=== PATIENT | female | born 1945 | race Caucasian/White ===

== ENCOUNTER 2019-10-10 08:09 | Inpatient (IN) ==
--- NOTE | 2019-09-14 15:50 | PAT Medication Instructions ---
Medication Instructions Date of Service September 14, 2019 Home Medications Rejuvenator 2 tab PO BID 09/14/19 [History Confirmed 09/14/19] albuterol sulfate [Ventolin HFA] 2 puff INHALATION QID PRN 09/14/19 [History Confirmed 09/14/19] alprazolam [Xanax] 1 mg PO TID 09/14/19 [History Confirmed 09/14/19] amlodipine 2.5 mg PO QAM 09/14/19 [History Confirmed 09/14/19] amlodipine [Norvasc] 2.5 mg PO QAM 09/14/19 [History Confirmed 09/14/19] ascorbic acid (vitamin C) [Vitamin C] 500 mg PO DAILY 09/14/19 [History Confirmed 09/14/19] diclofenac sodium 2 g TOPICAL HS 09/14/19 [History Confirmed 09/14/19] diclofenac sodium 75 mg PO BID 09/14/19 [History Confirmed 09/14/19] dicyclomine 20 mg PO QID 09/14/19 [History Confirmed 09/14/19] diphenhydramine HCl [ZzzQuil] 25 mg PO HS PRN 09/14/19 [History Confirmed 09/14/19] esomeprazole magnesium [Nexium] 40 mg PO QAM 09/14/19 [History Confirmed 09/14/19] ezetimibe [Zetia] 10 mg PO QAM 09/14/19 [History Confirmed 09/14/19] furosemide [Lasix] 40 mg PO QAM 09/14/19 [History Confirmed 09/14/19] hydrocodone-homatropine 1 tab PO Q6H PRN 09/14/19 [History Confirmed 09/14/19] magnesium oxide 400 mg PO QPM 09/14/19 [History Confirmed 09/14/19] valsartan 160 mg PO QAM 09/14/19 [History Confirmed 09/14/19] ASK your surgeon for instructions diclofenac sodium 75 mg PO BID 09/14/19 [History Confirmed 09/14/19] STOP taking 2 weeks before surgery (or as soon as possible if surgery is within 2 weeks) Rejuvenator 2 tab PO BID 09/14/19 [History Confirmed 09/14/19] STOP taking 24 hours before surgery diclofenac sodium 2 g TOPICAL HS 09/14/19 [History Confirmed 09/14/19] DO NOT take the morning of surgery ascorbic acid (vitamin C) [Vitamin C] 500 mg PO DAILY 09/14/19 [History Confirmed 09/14/19] dicyclomine 20 mg PO QID 09/14/19 [History Confirmed 09/14/19] furosemide [Lasix] 40 mg PO QAM 09/14/19 [History Confirmed 09/14/19] valsartan 160 mg PO QAM 09/14/19 [History Confirmed 09/14/19] Take morning of surgery With a small sip of water, OTHERWISE NOTHING TO EAT OR DRINK AFTER MIDNIGHT: albuterol sulfate [Ventolin HFA] 2 puff INHALATION QID PRN (use if needed; please bring with you to hospital day of surgery if possible) alprazolam [Xanax] 1 mg PO TID 09/14/19 [History Confirmed 09/14/19] amlodipine 2.5 mg PO QAM 09/14/19 [History Confirmed 09/14/19] amlodipine [Norvasc] 2.5 mg PO QAM 09/14/19 [History Confirmed 09/14/19] esomeprazole magnesium [Nexium] 40 mg PO QAM 09/14/19 [History Confirmed 09/14/19] ezetimibe [Zetia] 10 mg PO QAM 09/14/19 [History Confirmed 09/14/19] hydrocodone-homatropine 1 tab PO Q6H PRN (okay to take up to 4 hours prior to surgery if needed) Take evening before surgery albuterol sulfate [Ventolin HFA] 2 puff INHALATION QID PRN (if needed) alprazolam [Xanax] 1 mg PO TID 09/14/19 [History Confirmed 09/14/19] dicyclomine 20 mg PO QID 09/14/19 [History Confirmed 09/14/19] diphenhydramine HCl [ZzzQuil] 25 mg PO HS PRN (if needed) hydrocodone-homatropine 1 tab PO Q6H PRN (if needed) magnesium oxide 400 mg PO QPM 09/14/19 [History Confirmed 09/14/19] Other Notes If you have any questions please call us at [phone] or [phone] or [phone] or [phone]
--- NOTE | 2019-09-17 11:08 | History & Physical Report ---
Date of Service September 17, 2019 date of surgery: 10-10-19 Assessment & Plan (1) Arthritis of knee, left: Risks and benefits of procedure discussed in detail today, patient would like to proceed with a Left total knee replacement at [facility] as scheduled. will obtain medical clearance from Dr Delgado as well as cardiac clearance from Dr Knox prior to surgery as well as obtain PATs at [facility]. Will place on ASA 81mg po bid x 1 month post op, f/u 2 weeks post op for routine post-operative care and x-ray, sooner if having any problems. will make arrangements for HHPT at the time of discharge. At this point in time, has failed conservative measures and would like to proceed with surgical intervention. History of Present Illness Chief Complaint: left knee pain Primary Care Provider: Graeme Delgado MD Zulema is a 74 year old female who complains of left knee pain, presents for pre-op evaluation prior to a left total knee replacement by dr Hernandez at [facility]. She complains of pain, crepitus, decreased range of motion, instability and stiffness in the left knee. She states that the symptoms have been chronic and non-traumatic and that the symptoms occur constantly with intermittent worsening. Currently the patient states that the symptoms are moderate-severe. The pain is described as aching, sharp and throbbing. The symptoms occur continuously. The symptoms are aggravated by ascending stairs, daily activities, first steps while awake walking. Prior NSAIDs include Aleve and Ibuprofen. she has been treated with previous cortisone and visco injections in the past without much relief. she is currently using a walker to assist with ambulation. Allergies Allergy/AdvReac Type Severity Reaction Status Date / Time amoxicillin [From Augmentin] Allergy Unknown DEWITT MOUTH Verified 09/14/19 11:40 clavulanic acid Allergy Unknown DEWITT MOUTH Verified 09/14/19 11:40 [From Augmentin] erythromycin base Allergy Unknown DEWITT MOUTH Verified 09/14/19 15:48 paroxetine [From Paxil] AdvReac Unknown DEWITT MOUTH Verified 09/14/19 15:48 Home Medications Home Medications Medication Instructions Recorded Confirmed Type Rejuvenator 2 tab PO BID 09/14/19 09/14/19 History albuterol sulfate [Ventolin HFA] 2 puff INHALATION QID PRN 09/14/19 09/14/19 History alprazolam [Xanax] 1 mg PO TID 09/14/19 09/14/19 History amlodipine 2.5 mg PO QAM 09/14/19 09/14/19 History amlodipine [Norvasc] 2.5 mg PO QAM 09/14/19 09/14/19 History ascorbic acid (vitamin C) [Vitamin 500 mg PO DAILY 09/14/19 09/14/19 History C] diclofenac sodium 2 g TOPICAL HS 09/14/19 09/14/19 History diclofenac sodium 75 mg PO BID 09/14/19 09/14/19 History dicyclomine 20 mg PO QID 09/14/19 09/14/19 History diphenhydramine HCl [ZzzQuil] 25 mg PO HS PRN 09/14/19 09/14/19 History esomeprazole magnesium [Nexium] 40 mg PO QAM 09/14/19 09/14/19 History ezetimibe [Zetia] 10 mg PO QAM 09/14/19 09/14/19 History furosemide [Lasix] 40 mg PO QAM 09/14/19 09/14/19 History hydrocodone-homatropine 1 tab PO Q6H PRN 09/14/19 09/14/19 History magnesium oxide 400 mg PO QPM 09/14/19 09/14/19 History valsartan 160 mg PO QAM 09/14/19 09/14/19 History Past Med/Surg History Medical History Anxiety Asthma Depression Diarrhea Hyperlipidemia Hypertension Needle phobia 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 Osteoarthritis Slow to wake up after anesthesia Urinary urgency Surgical History History of dental surgery Hx of bilateral cataract extraction Hx of cholecystectomy Hx of total hysterectomy Family History Aunt Family history of diabetes mellitus Mother Family history of diabetes mellitus Mother FHx: stroke Other FHx: heart disease Social History Preferred Language: Taiwanese Communication Ability: Effective Beliefs That Will Affect Care: None Current Living Situation: Alone Feels Safe at Home: Yes Safety Concerns: Feels Safe At This Time Smoking Status: Never smoker Do You Dip or Chew Tobacco: No ; Second Hand Exposure: Yes ( SMOKED) ; Hx Alcohol Use: No Hx Substance Use: No Review of Systems Review of Systems: All systems reviewed & are unremarkable except as noted in HPI & below Constitutional: no fever, no chills and no sweats Respiratory: no cough and no dyspnea Cardiovascular: no chest pain, no dyspnea and no orthopnea Gastrointestinal: no abdominal pain, no nausea and no vomiting Musculoskeletal: as per Subjective / HPI Physical Exam Physical Exam: Ht: 5ft 1in Wt: 104.8kg BP: 136/74 Pulse: 76 Constitutional: WD/WN, vitals as above no acute distress Respiratory: normal respiratory effort, lungs clear to auscultation no respiratory distress, no labored breathing and does not use accessory muscles Cardiovascular: RRR, no murmur, no edema Gastrointestinal (Abdomen): normal bowel sounds, soft, nontender, no hepatosplenomegaly Musculoskeletal: Knee: + knee abnormal to inspection (left knee), + effusion (+1 effusion), + limited ROM of knee (ROM 0/3/110), + knee ROM with crepitation, + joint line tenderness (medial joint line) and + Kathy's sign positive; no deformity, no skin erythema, no ecchymosis, no valgus laxity, no varus laxity, anterior drawer test negative, Rafa's sign negative and pivot shift test negative Results & Data Diagnostic Findings Left Knee X-ray dated 09/10/19 showing degenerative changes to the left knee, showing joint space narrowing of the medial compartment, no acute bony pathology noted.
--- NOTE | 2019-09-17 14:59 | Anesthesiology Consultation ---
Date of Service September 17, 2019 Assessment & Plan (1) Encounter for pre-operative examination: Chart Review Chart Review: Pending: Refer to Additional Notes / Consult section (awaiting PAT results) History Surgery Operation Date: 10/10/19 09:40 Proposed Procedures p Left Total Knee Arthroplasty - Rod Hernandez DO Height/Weight Height: 5 ft 1 in Weight: 104.78 kg Allergies Allergy/AdvReac Type Severity Reaction Status Date / Time amoxicillin [From Augmentin] Allergy Unknown DEWITT MOUTH Verified 09/14/19 11:40 clavulanic acid Allergy Unknown DEWITT MOUTH Verified 09/14/19 11:40 [From Augmentin] erythromycin base Allergy Unknown DEWITT MOUTH Verified 09/14/19 15:48 paroxetine [From Paxil] AdvReac Unknown DEWITT MOUTH Verified 09/14/19 15:48 Medications Home Medications Medication Instructions Recorded Confirmed Last Taken Rejuvenator 2 tab PO BID 09/14/19 09/14/19 Unknown albuterol sulfate [Ventolin HFA] 2 puff INHALATION QID PRN 09/14/19 09/14/19 Unknown alprazolam [Xanax] 1 mg PO TID 09/14/19 09/14/19 Unknown amlodipine 2.5 mg PO QAM 09/14/19 09/14/19 Unknown amlodipine [Norvasc] 2.5 mg PO QAM 09/14/19 09/14/19 Unknown ascorbic acid (vitamin C) [Vitamin 500 mg PO DAILY 09/14/19 09/14/19 Unknown C] diclofenac sodium 2 g TOPICAL HS 09/14/19 09/14/19 Unknown diclofenac sodium 75 mg PO BID 09/14/19 09/14/19 Unknown dicyclomine 20 mg PO QID 09/14/19 09/14/19 Unknown diphenhydramine HCl [ZzzQuil] 25 mg PO HS PRN 09/14/19 09/14/19 Unknown esomeprazole magnesium [Nexium] 40 mg PO QAM 09/14/19 09/14/19 Unknown ezetimibe [Zetia] 10 mg PO QAM 09/14/19 09/14/19 Unknown furosemide [Lasix] 40 mg PO QAM 09/14/19 09/14/19 Unknown hydrocodone-homatropine 1 tab PO Q6H PRN 09/14/19 09/14/19 Unknown magnesium oxide 400 mg PO QPM 09/14/19 09/14/19 Unknown valsartan 160 mg PO QAM 09/14/19 09/14/19 Unknown Past Medical History Medical History Anxiety Asthma Depression Diarrhea Hyperlipidemia Hypertension Needle phobia 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 Osteoarthritis Slow to wake up after anesthesia Urinary urgency Exercise / Class Metabolic Activity III < 4 Walking/Shop/Light housework Past Family History Family History Aunt Family history of diabetes mellitus Mother Family history of diabetes mellitus Mother FHx: stroke Other FHx: heart disease Past Surgical History Surgical History History of dental surgery Hx of bilateral cataract extraction Hx of cholecystectomy Hx of total hysterectomy Social History Smoking Status: Never smoker Do You Dip or Chew Tobacco: No Hx Alcohol Use: No Hx Substance Use: No Physical Exam ENMT Mouth: + dentures Thyromental Distance: > or= 3.5 Finger Breadths Mallampati Class: II Neck normal visual inspection Respiratory normal respiratory effort Auscultation: lungs clear to auscultation bilaterally Cardiovascular Rate/Rhythm: regular rate and regular rhythm Vessels: no carotid bruit
--- NOTE | 2019-09-17 15:52 | XRay Report ---
XR chest Pre-admission PA/Lat CLINICAL HISTORY: Preoperative chest COMPARISON STUDY: No previous studies for comparison. FINDINGS: The cardiac and mediastinal contours are normal. There is no evidence of focal pulmonary co nsolidation. There is no evidence of failure. No pleural effusions are visualized.[ IMPRESSION: No active disease in the chest. ACT 112: Negative or not required by law. Electronically signed by: Sukhwinder Villatoro M.D. 09/17/2019 3:51 PM
[2019-09-17 15:55] LABS: Basophils # (auto) 0.03 K/uL (0-0.2); Basophils % (auto) 0.4 %; Eosinophils # (auto) 0.14 K/uL (0-0.5); Eosinophils % (auto) 1.8 %; Hematocrit (blood only) 41.2 % (37-47); Hemoglobin 13.6 g/dL (12.0-16.0); Immature Granulocytes # (auto) 0.02 K/uL (0.00-0.02); Immature Granulocytes % (auto) 0.3 %; Lymphocytes # (auto) 2.24 K/uL (1.2-3.4); Lymphocytes % (auto) 29.2 %; Mean Corpuscular Hemoglobin 32.2 pg (25-34); Mean Corpuscular Volume 97.4 fL (80-100); Mean Platelet Volume 11.3 fL (7.4-10.4); Monocytes # (auto) 0.54 K/uL (0.11-0.59); Neutrophils # (auto) 4.69 K/uL (1.4-6.5); Neutrophils % (auto) 61.3 %; Platelet Count 173 K/uL (130-400); RDW Coefficient of Variation 13.7 % (11.5-14.5); RDW Standard Deviation 48.7 fL (36.4-46.3); Red Blood Count 4.23 M/uL (4.2-5.4); White Blood Count 7.66 K/uL (4.8-10.8)
[2019-09-17 16:02] LABS: BUN Creatinine Ratio 14.1 (10-20); Calcium 9.6 mg/dl (8.5-10.1); Creatinine Clr Calc Pharmacy 66.1 ml/min; Est GFR (African American) 81.8; Est GFR (Non-African American) 70.5; Potassium 4.4 mmol/L (3.5-5.1)
[2019-09-17 16:07] LABS: Appearance Urine Clear (Clear); Bacteria Urine Automated Negative (Negative); Bilirubin Urine Negative (Negative); Blood Urine Negative (Negative); Color Urine Dark Yellow; Epithelial Cell Urine Auto >30 /lpf (0-5); Glucose Urine UA Negative (Negative); Ketones Urine Negative (Negative); Leukocyte Esterase Urine 1+ (Negative); Nitrite Urine Negative (Negative); Protein Urine Negative (Negative); Specific Gravity Urine 1.021 (1.000-1.030); Urobilinogen Urine Negative (Negative); pH Urine 5.5 (4.5-7.5)
[2019-09-17 16:20] LABS: Partial Thromboplastin Ratio 0.9; Partial Thromboplastin Time 25.3 Seconds (21.0-31.0); Prothrombin Time 10.3 Seconds (9.0-12.0)
[2019-09-18 05:49] LABS: Estimated Average Glucose 103 mg/dl; Hemoglobin A1C 5.2 % (4.5-5.6)
[~2019-10-10 08:09] MED LIST: ACETAMINOPHEN 500 MG TAB PO SCH; BUPIVACAINE 0.5 % 5 MG/1 ML PF 10ML VIAL ONE; BUPIVACAINE/EPINEPHRINE 0.25% 1:200,000 30 ML VIAL ONE; CLINDAMYCIN 600 MG/54 ML BAG IV SCH; CeleBREX 200 MG CAP PO SCH; DEXAMETHASONE SOD INJ 4 MG/ML VIAL ONE; GABAPENTIN 300 MG CAP PO SCH; LR 500ML BOLUS, THEN 15ML/HR IV SCH; ROPIVACAINE 0.5% HCL/PF 150 MG, BUPIVACAINE 0.5% MPF 30 ML, EPINEPHrine 30MG/30ML (OR U... INSTIL SCH; TRANEXAMIC ACID 1,000 MG **IV Intra-op IV SCH; TRANEXAMIC ACID 1,000 MG **IV Pre-op IV SCH; dexAMETHasone 4 MG TAB PO SCH
--- NOTE | 2019-10-10 09:42 | History & Physical Bridge Note ---
Date of Service October 10, 2019 History & Physical Bridge Note I have examined the patient, reviewed the History & Physical and in the interval since the performance of the History & Physical I have noted the following changes of clinical significance: no changes noted
[2019-10-10] MEDS ORDERED: MIDAZOLAM HCL 1 MG/ML 2ML VIAL ONE ×2 (09:50→11:04)
[2019-10-10] MEDS ORDERED: fentaNYL citrate 100 MCG/2 ML VIAL ONE (09:50)
[2019-10-10] MEDS ORDERED: LIDOCAINE HCL 2% 2 ML VIAL/AMP(20MG/ML) INFIL ONE (10:17)
[2019-10-10] MEDS ORDERED: PROPOFOL IV EMULSION 10 MG/ML 20 ML VIAL IV ONE ×2 (10:17→12:25)
[2019-10-10] MEDS ORDERED: ONDANSETRON INJ 2 MG/ML 2 ML VIAL ONE (10:17)
[2019-10-10] MEDS ORDERED: BACITRACIN INJ 50,000 UNIT VIAL ONE (10:21)
[2019-10-10] MEDS ORDERED: ORTHO JOINT ANESTHETIC ONE (10:21)
[2019-10-10] MEDS ORDERED: KETAMINE HCL INJ 50 MG/ML 10 ML VIAL ONE (11:21)
[2019-10-10] MEDS ORDERED: ePHEDrine sulfate 50 MG/ML AMP IV PRN (11:23)
[2019-10-10] MEDS ORDERED: fentaNYL citrate 100 MCG/2 ML VIAL IV PRN (11:23)
[2019-10-10] MEDS ORDERED: ONDANSETRON INJ 2 MG/ML 2 ML VIAL IV PRN ×2 (11:23→14:02)
[2019-10-10] MEDS ORDERED: ATROPINE SULFATE 0.1 MG/ML 10ML SYR IV PRN (11:23)
--- NOTE | 2019-10-10 12:16 | Operative Report ---
Post Operative Report Pre & Post Diagnosis Operation Date: 10/10/19 11:10 Pre-Op Diagnosis: Unilateral Primary Osteoarthritis, Left Knee Post-Op Diagnosis: Unilateral Primary Osteoarthritis, Left Knee I identified the patient and participated in the time-out.: Yes Procedure Operation Date: 10/10/19 11:10 Actual Procedures p Left Total Knee Arthroplasty(Left utilizing Su & Nephew journey 2 patient matched total knee arthroplasty size 4 femur to tibia 11 polyethylene 32 oval patella) - Rod Hernandez DO Surgeon Rod Hernandez DO Hotel Housekeeper Arian BLACK Estimated Blood Loss 5 Findings Consistent with Post-Op Diagnosis Patient presents with severe end-stage tricompartmental degenerative joint disease varus alignment [id number] eburnated bone subchondral cystic changes marginal osteophytes moderate to large effusion left knee with end-stage DJD Specimens Bone and cartilage Anesthesia Type MAC Spinal Regional Complications none Disposition Accompanied Patient To Recovery: No Disposition: Recovery Room Indications Patient presents with severe end-stage tricompartmental degenerative joint disease no response to conservative management and physical therapy anti- inflammatories relative rest activity modification corticosteroid injections Visco supplementations the above intraoperative findings no time surgery. Description of Procedure After proper prepping and draping of the left lower extremity anterior midline incision was made over the region of the extensor extensor mechanism after meticulous hemostasis was obtained and maintained in subcutaneous tissues a medial parapatellar incision was made The patella was subluxed lateralward the medial lateral gutter were cleaned from any hypertrophic synovitis and scar tissue of the distal femoral block was placed and the distal femoral osteotomy cut was made subsequently the chamfers anterior and posterior osteotomy cuts were made utilizing the 4-in-1 block the tibia was subsequently subluxed anteriorward medial and ateral meniscal remnants were excised in their entirety remnants of the anterior and posterior cruciate ligaments were excised in their entirety excellent exposure of the proximal tibia was obtained the tibial osteotomy guide was placed on the proximal tibial osteotomy cut was made once again the knee was irrigated with copious amounts of sterile saline solution the patella was subsequently everted lateralward thickened scar tissue around the patella was removed the patella was subsequently cut utilizing a freehand technique and was drilled prepared for final preparation and placement of patella socially flexion-extension gaps were checked and the equal and symmetric trials were placed to the appropriate femoral and tibial trials with poly-spacer being placed for equal flexion and extension gaps and full range of motion including extension to 0 and flexion to 140 the trial components after having been taken to recovery range of motion was subsequently removed meticulous hemostasis was obtained and maintained subsequently a knee block injection of joint cocktail including ropivacaine 0.5% 150 mg. Bupivacaine 0.5% epinephrine 1-200,030 mL's toradol 30 mg dexamethasone 4 mg ketamine 10 mg clonidine 100 micrograms normal saline solution 30 mg was infiltrated into the soft tissues of the posterior knee medial lateral gutters and periosteal synovium special attention was paid to protect neurovascular structures at all times subsequently trial components having been removed the knee was irrigated with sterile saline solution. debris was removed the proximal tibia was subsequently prepared and was made ready for the placement of the tibial component tibial component was also cemented and tamped into position the femoral component was subsequently placed and cemented in the position the patellar component was subsequently cemented in position because hemostasis once again obtained and maintained wound having been thoroughly irrigated with debridement and debridement lavage was performed as well as a medial parapatellar incision closed with #1 Vicryl in interrupted fashion subcutaneous was closed with #2 Vicryl skin was closed with skin clips. PA-C was necessary for prepping and drapping as well as wound closure of deep fascia Sub cutaneous tissue and skin and was necessary for the case. A sterile compressive dressing was placed patient was taken to recovery in stable condition of report dictated by David I attest to the content of the Intraoperative Record and any orders documented therein. Any exceptions are noted below. I attest to the content of the Intraoperative Record and any orders documented therein. Any exceptions are noted below.
--- NOTE | 2019-10-10 13:24 | Anesthesiology Progress Note ---
Date of Service October 10, 2019 Anesthesia Post Procedure Vital Signs Vital Signs: Temp Pulse Pulse Resp BP Pulse Ox 10/10/19 13:15 37 C 81 15 161/69 H 92 10/10/19 13:05 82 20 149/67 H 94 10/10/19 12:58 36.8 C 92 H 16 161/71 H 95 10/10/19 09:08 36.9 C 71 24 151/85 H 95 Transfer of Care Handoff Completed per policy Notes Mental Status: alert / awake / arousable Patient Amnestic to Procedure: Yes Nausea / Vomiting: adequately controlled Pain: adequately controlled Airway Patency, RR, SpO2: stable & adequate BP & HR: stable & adequate Hydration State: stable & adequate Neuraxial Anesthesia: was administered and sensory block is resolving Anesthetic Complications: no major complications apparent and Pt Satisfied with anesthetic care
--- NOTE | 2019-10-10 13:51 | XRay Report ---
LEFT KNEE 2 VIEWS History: Left total knee arthroplasty. Degenerative arthritis. Postop. FINDINGS: The patient is status post a left total knee arthroplasty. The hardware is intact. No fract ure or dislocation. Skin shorty and surgical drains are in place. IMPRESSION: Left total knee arthroplasty. No evidence for hardware complication. ACT 112: Negative or not required by law. Electronically signed by: Ronny Tapia M.D. 10/10/2019 1:50 PM
[2019-10-10] MEDS ORDERED: bisacodyL 10 MG SUPP PR PRN (14:02)
[2019-10-10] MEDS ORDERED: NALOXONE HCL 0.4 MG/1 ML VIAL/CARP IV PRN (14:02)
[2019-10-10] MEDS ORDERED: HYDROmorphone INJ 0.5 MG/0.5 ML SYR IV PRN (14:02)
[2019-10-10] MEDS ORDERED: MAGNESIUM HYDROXIDE SUSP 30 ML UDC PO PRN (14:02)
[2019-10-10] MEDS ORDERED: METOCLOPRAMIDE HCL INJ 5 MG/ML 2 ML VIAL IV PRN (14:02)
[2019-10-10] MEDS ORDERED: ALBUTEROL HFA 8 GM INHALER INH PRN (14:02)
[2019-10-10] MEDS ORDERED: SODIUM CHLORIDE 0.9% 1000ML 1,000 ML IV SCH (14:02)
[2019-10-10] MEDS: ACETAMINOPHEN 500 MG TAB PO SCH ×2 (14:52→21:02)
[2019-10-10] MEDS: ALPRAZolam 0.5 MG TABLET PO SCH ×2 (14:53→21:02)
--- NOTE | 2019-10-10 15:35 | Hospitalist Consultation ---
Date of Consultation October 10, 2019 Assessment & Plan (1) Arthritis of knee, left: S/p left TKA with Dr. Hernandez on 10/10/2019. Estimated blood loss of 5 mL per operative note. - Post-operative follow up and pain managment per primary team - At risk for acute blood loss anemia - Follow hgbs - PT/OT & dispo per primary team - DVT ppx per primary team (2) (HFpEF) heart failure with preserved ejection fraction: Patient is on Lasix at home. Though it is listed as daily she tells me she takes it PRN when she feels chest tightness. - Will stop IV fluids at this time - Will hold Lasix for now, but low threshold to give her a dose (3) CAD (coronary artery disease): Cath in 2013 with non-obstructive CAD found. - Continue ezetimibe (4) Hypertension: BP is 135/75 after surgery. - Continue amlodipine, valsartan (5) Asthma: No present shortness of breath. Not on a maintenance inhaler. - Albuterol PRN (6) Anxiety: Uses her Xanax TID all the time. While not my preferred anti-anxiety regimen, I would not adjust this while inpatient. History of Present Illness Attending Physician: Rod Hernandez, DO History of Present Illness 74yo F w/ hx of CAD, HFpEF, asthma, and anxiety who presents as a medical consult after left TKA with Dr. Hernandez on 10/10/2019. Overall, she is doing very well. No major complaints at this time. Her left knee is feeling ok. She denies any shortness of breath. She reports she uses her lasix PRN when she feels a "tightness" in her chest. At present, she does not have this sensation and really wants to go home tomorrow. Allergies Allergy/AdvReac Type Severity Reaction Status Date / Time amoxicillin [From Augmentin] Allergy Unknown DEWITT MOUTH Verified 10/10/19 08:55 clavulanic acid Allergy Unknown DEWITT MOUTH Verified 10/10/19 08:55 [From Augmentin] erythromycin base Allergy Unknown DEWITT MOUTH Verified 10/10/19 08:55 paroxetine [From Paxil] AdvReac Unknown DEWITT MOUTH Verified 10/10/19 08:55 Home Medications Home Medications Medication Instructions Recorded Confirmed Type albuterol sulfate [Ventolin HFA] 2 puff INHALATION QID PRN 09/14/19 10/10/19 History alprazolam [Xanax] 1 mg PO TID 09/14/19 10/10/19 History amlodipine 2.5 mg PO QAM 09/14/19 10/10/19 History ascorbic acid (vitamin C) [Vitamin 500 mg PO DAILY 09/14/19 10/10/19 History C] diclofenac sodium 2 g TOPICAL HS 09/14/19 10/10/19 History diclofenac sodium 75 mg PO BID 09/14/19 10/10/19 History dicyclomine 20 mg PO QID 09/14/19 10/10/19 History diphenhydramine HCl [ZzzQuil] 25 mg PO HS PRN 09/14/19 10/10/19 History esomeprazole magnesium [Nexium] 40 mg PO QAM 09/14/19 10/10/19 History ezetimibe [Zetia] 10 mg PO QAM 09/14/19 10/10/19 History furosemide [Lasix] 40 mg PO QAM 09/14/19 10/10/19 History hydrocodone-homatropine 1 tab PO Q6H PRN 09/14/19 10/10/19 History magnesium oxide 400 mg PO QPM 09/14/19 10/10/19 History valsartan 160 mg PO QAM 09/14/19 10/10/19 History Patient History Medical History Anxiety Asthma Depression Diarrhea Hyperlipidemia Hypertension Needle phobia 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 Osteoarthritis Urinary urgency Surgical History History of dental surgery Hx of bilateral cataract extraction Hx of cholecystectomy Hx of total hysterectomy Slow to wake up after anesthesia Family History Aunt Family history of diabetes mellitus Mother Family history of diabetes mellitus Mother FHx: stroke Other FHx: heart disease Social History Preferred Language: Surinamese Communication Ability: Effective Beliefs That Will Affect Care: None Current Living Situation: Alone Feels Safe at Home: Yes Safety Concerns: Feels Safe At This Time Smoking Status: Never smoker Do You Dip or Chew Tobacco: No ; Second Hand Exposure: Yes ( SMOKED) ; Hx Alcohol Use: No Hx Substance Use: No Review of Systems Review of Systems: All systems reviewed & are unremarkable except as noted in HPI & below Physical Exam Constitutional: WD/WN, vitals as above Eyes: EOM intact bilaterally; no conjunctival abnormality ENMT: external ear and nose normal, oropharynx normal Neck: trachea midline, no thyromegaly normal visual inspection Respiratory: normal respiratory effort, lungs clear to auscultation no respiratory distress Cardiovascular: RRR, no murmur, no edema Gastrointestinal (Abdomen): Inspection/Auscultation: abdomen normal to inspection; abdomen not distended Musculoskeletal: Extremities: extremities normal to inspection (Left knee in bandage with drain present.) Skin: no rashes, warm and dry Neurologic: moves all extremities and awake Psychiatric: Orientation: alert, oriented to person and cooperative Results & Data ([facility]) Vital Signs (Past 12 Hours) Vital Signs Temp Pulse Pulse Resp BP Pulse Ox 10/10/19 15:03 36.7 C 73 17 146/78 H 96 10/10/19 14:42 66 18 132/67 96 10/10/19 14:06 37.2 C 77 16 151/75 H 94 10/10/19 13:40 81 20 139/73 93 10/10/19 13:25 78 19 153/74 H 93 10/10/19 13:15 37 C 81 15 161/69 H 92 10/10/19 13:05 82 20 149/67 H 94 10/10/19 12:58 36.8 C 92 H 16 161/71 H 95 10/10/19 09:08 36.9 C 71 24 151/85 H 95 PG Care Time/CCT Total # of Minutes Spent Total Time Spent with Patient: Total time spent is greater than 50% in coordination of care (as documented) at patient's floor/unit and/or counseling patient: Coding Level of Care Code 51632 Inpt Consult Level 3 Diagnoses Arthritis of knee, left M17.12 (HFpEF) heart failure with preserved ejection fraction I50.30 CAD (coronary artery disease) I25.10 Hypertension I10 Asthma J45.909 Anxiety F41.9
[2019-10-10] MEDS: FERROUS GLUCONATE 324 MG TAB PO SCH (16:43)
[2019-10-10] MEDS: DICYCLOMINE HCL 20 MG TAB PO SCH ×3 (16:43→21:01)
[2019-10-10] MEDS: CLINDAMYCIN 600 MG in DEXTROSE 5% 50 ML IV SCH (18:21)
[2019-10-10] MEDS: OXYCODONE HCL IR 5 MG TAB (IMMEDIATE RELEASE) PO PRN (19:35)
[2019-10-10] MEDS ORDERED: SENNA 8.6 MG TAB PO SCH (21:00)
[2019-10-10] MEDS ORDERED: MAGNESIUM OXIDE 400 MG TAB PO SCH (21:00)
[2019-10-10] MEDS: ASPIRIN 81 MG ECTAB PO SCH (21:01)
[2019-10-10] MEDS: DOCUSATE SODIUM 100 MG CAP PO SCH (21:01)
[2019-10-11] MEDS: CLINDAMYCIN 600 MG in DEXTROSE 5% 50 ML IV SCH (02:09)
[2019-10-11] MEDS: ACETAMINOPHEN 500 MG TAB PO SCH (05:58)
[2019-10-11 06:19] LABS: Hematocrit (blood only) 37.1 % (37-47); Hemoglobin 12.6 g/dL (12.0-16.0); Mean Corpuscular Hemoglobin 32.4 pg (25-34); Mean Corpuscular Volume 95.4 fL (80-100); Mean Platelet Volume 10.3 fL (7.4-10.4); Platelet Count 161 K/uL (130-400); RDW Coefficient of Variation 12.7 % (11.5-14.5); RDW Standard Deviation 44.3 fL (36.4-46.3); Red Blood Count 3.89 M/uL (4.2-5.4)
[2019-10-11 06:50] LABS: Calcium 9.1 mg/dl (8.5-10.1); Creatinine Clr Calc Pharmacy 55.9 ml/min; Est GFR (African American) 67.4; Est GFR (Non-African American) 58.2; Potassium 4.7 mmol/L (3.5-5.1)
--- NOTE | 2019-10-11 07:55 | Orthopedic Progress Note ---
Date of Service October 11, 2019 Assessment & Plan (1) History of total left knee replacement: POD #1 s/p Left TKA pt/ot dvt proph with [facility]/SCD/ASA plan for d/c home with HHPT, recheck after PT today. likely have home health d/c drain tomorrow. Subjective POD #1 s/p Left TKA Review of Systems Constitutional: no fever, no chills and no sweats Respiratory: no cough and no dyspnea Cardiovascular: no chest pain and no dyspnea Gastrointestinal: no abdominal pain, no nausea and no vomiting Physical Exam Physical Exam: Vital Signs Temp 36.7 C 10/11/19 03:00 Pulse 55 L 10/11/19 03:00 Resp 18 10/11/19 03:00 BP 152/67 H 10/11/19 03:00 Pulse Ox 91 10/11/19 03:00 Intake & Output 10/10/19 10/11/19 10/11/19 18:59 06:59 18:59 Intake Total 1464.000 / 2312.00 0 848 / 2312.000 Output Total 205 / 1305 1100 / 1305 Balance 1259.000 / 1007.00 0 -252 / 1007.000 Weight 103.918 kg Intake: IV 964.000 / 1072.000 108 / 1072.000 Cleocin 600 mg In D5w 50 ml @ 108 / 108 100 mls/hr IV Q8H [facility] Rx#: [id number] CLEOCIN 600 mg In 54 ml @ 100 54 / 54 mls/hr IV PREO P [facility] Rx#: [id number] Lr 1,000 ml @ 15 mls/hr IV . 700.000 / 700.000 Q24H [facility] Rx#:[id number] TRANEXAMIC ACI D / 0.7% NACL 1, 210 / 210 000 mg In 100 ml @ 600 mls/hr IV TODAY@0600 [facility] Rx#:[id number] IV Perioperative 500 / 500 Oral 740 / 740 Output: Urine 200 / 975 775 / 975 Estimated Blood Loss 5 / 5 Drain Output 325 / 325 Left Knee 325 / 325 Constitutional: WD/WN, vitals as above no acute distress Musculoskeletal: Left Leg: NVDI, calf SNT, negative laureen sign. DP palpable, able to wiggle toes/ankle movement without difficulty. dressing clean dry and intact. Results & Data ([facility]) Vital Signs (Past 12 Hours) Vital Signs Temp Pulse Resp BP Pulse Ox 10/11/19 03:00 36.7 C 55 L 18 152/67 H 91 10/10/19 23:10 36.5 C 71 16 159/68 H 94 Laboratory Results Laboratory Results WBC 14.60 K/uL (4.8-10.8) H 10/11/19 06:04 RBC 3.89 M/uL (4.2-5.4) L 10/11/19 06:04 Hgb 12.6 g/dL (12.0-16.0) 10/11/19 06:04 Hct 37.1 % (37-47) 10/11/19 06:04 MCV 95.4 fL (80-100) 10/11/19 06:04 MCH 32.4 pg (25-34) 10/11/19 06:04 MCHC 34.0 g/dL (32-36) 10/11/19 06:04 RDW Std Deviation 44.3 fL (36.4-46.3) 10/11/19 06:04 RDW Coeff of Lizandro 12.7 % (11.5-14.5) 10/11/19 06:04 Plt Count 161 K/uL (130-400) 10/11/19 06:04 MPV 10.3 fL (7.4-10.4) 10/11/19 06:04 Immature Gran % (Auto) 0.3 % 09/17/19 15:14 Neut % (Auto) 61.3 % 09/17/19 15:14 Lymph % (Auto) 29.2 % 09/17/19 15:14 Garrett % (Auto) 7.0 % 09/17/19 15:14 Eos % (Auto) 1.8 % 09/17/19 15:14 Baso % (Auto) 0.4 % 09/17/19 15:14 Immature Gran # (Auto) 0.02 K/uL (0.00-0.02) 09/17/19 15:14 Neut # (Auto) 4.69 K/uL (1.4-6.5) 09/17/19 15:14 Lymph # (Auto) 2.24 K/uL (1.2-3.4) 09/17/19 15:14 Garrett # (Auto) 0.54 K/uL (0.11-0.59) 09/17/19 15:14 Eos # (Auto) 0.14 K/uL (0-0.5) 09/17/19 15:14 Baso # (Auto) 0.03 K/uL (0-0.2) 09/17/19 15:14 PT 10.3 Seconds (9.0-12.0) 09/17/19 15:14 INR 1.0 (0.9-1.1) 09/17/19 15:14 APTT 25.3 Seconds (21.0-31.0) 09/17/19 15:14 PTT Ratio 0.9 09/17/19 15:14 Sodium 138 mmol/L (136-145) 10/11/19 06:04 Potassium 4.7 mmol/L (3.5-5.1) 10/11/19 06:04 Chloride 105 mmol/L (98-107) 10/11/19 06:04 Carbon Dioxide 30 mmol/L (21-32) 10/11/19 06:04 Anion Gap 3.0 (3-11) 10/11/19 06:04 BUN 20 mg/dl (7-18) H 10/11/19 06:04 Creatinine 0.95 mg/dl (0.6-1.2) 10/11/19 06:04 Est Cr Clr Drug Dosing 55.9 ml/min 10/11/19 06:04 Est GFR ( Amer) 67.4 10/11/19 06:04 Est GFR (Non-Af Amer) 58.2 10/11/19 06:04 BUN/Creatinine Ratio 21.0 (10-20) H 10/11/19 06:04 Glucose 124 mg/dl (70-99) H 10/11/19 06:04 Estimat Average Glucose 103 mg/dl 09/17/19 15:14 Hemoglobin A1c 5.2 % (4.5-5.6) 09/17/19 15:14 Calcium 9.1 mg/dl (8.5-10.1) 10/11/19 06:04 Albumin 4.0 gm/dl (3.4-5.0) 09/17/19 15:14 Urine Color Dark Yellow 09/17/19 15:14 Urine Appearance Clear (Clear) 09/17/19 15:14 Urine pH 5.5 (4.5-7.5) 09/17/19 15:14 Ur Specific [place] 1.021 (1.000-1.030) 09/17/19 15:14 Urine Protein Negative (Negative) 09/17/19 15:14 Urine Glucose (UA) Negative (Negative) 09/17/19 15:14 Urine Ketones Negative (Negative) 09/17/19 15:14 Urine Blood Negative (Negative) 09/17/19 15:14 Urine Nitrite Negative (Negative) 09/17/19 15:14 Urine Bilirubin Negative (Negative) 09/17/19 15:14 Urine Urobilinogen Negative (Negative) 09/17/19 15:14 Ur Leukocyte Esterase 1+ (Negative) H 09/17/19 15:14 Urine WBC (Auto) 10-30 /hpf (0-5) H 09/17/19 15:14 Urine RBC (Auto) 5-10 /hpf (0-4) H 09/17/19 15:14 U Hyaline Cast (Auto) 1-5 /lpf (0-5) 09/17/19 15:14 U Epithel Cells (Auto) >30 /lpf (0-5) H 09/17/19 15:14 Urine Bacteria (Auto) Negative (Negative) 09/17/19 15:14 Blood Type A Positive 09/17/19 15:14 Antibody Screen NEGATIVE 09/17/19 15:14 Diagnostic Findings LEFT KNEE 2 VIEWS History: Left total knee arthroplasty. Degenerative arthritis. Postop. FINDINGS: The patient is status post a left total knee arthroplasty. The hardware is intact. No fracture or dislocation. Skin shorty and surgical drains are in place. IMPRESSION: Left total knee arthroplasty. No evidence for hardware complication.
[2019-10-11] MEDS: DOCUSATE SODIUM 100 MG CAP PO SCH (08:18)
[2019-10-11] MEDS: ASPIRIN 81 MG ECTAB PO SCH (08:18)
[2019-10-11] MEDS: DICYCLOMINE HCL 20 MG TAB PO SCH (08:18)
[2019-10-11] MEDS: FERROUS GLUCONATE 324 MG TAB PO SCH (08:18)
[2019-10-11] MEDS: OXYCODONE HCL IR 5 MG TAB (IMMEDIATE RELEASE) PO PRN ×2 (08:25→11:05)
[2019-10-11] MEDS: ALPRAZolam 0.5 MG TABLET PO SCH (08:25)
--- NOTE | 2019-10-11 08:41 | Anesthesiology Progress Note ---
Date of Service October 11, 2019 Anesthesia Post Procedure Vital Signs Vital Signs: Temp Pulse Pulse Pulse Resp BP BP 10/11/19 08:05 36.5 C 57 L 20 122/68 10/11/19 03:00 36.7 C 55 L 18 152/67 H 10/10/19 23:10 36.5 C 71 16 159/68 H 10/10/19 18:28 10/10/19 18:27 20 10/10/19 17:00 36.8 C 65 17 139/69 10/10/19 15:59 36.8 C 63 18 137/76 10/10/19 15:58 10/10/19 15:03 36.7 C 73 17 146/78 H 10/10/19 14:42 66 18 132/67 10/10/19 14:06 37.2 C 77 16 151/75 H 10/10/19 13:40 81 20 139/73 10/10/19 13:25 78 19 153/74 H 10/10/19 13:15 37 C 81 15 161/69 H 10/10/19 13:05 82 20 149/67 H 10/10/19 12:58 36.8 C 92 H 16 161/71 H 10/10/19 09:08 36.9 C 71 24 151/85 H Pulse Ox 10/11/19 08:05 95 10/11/19 03:00 91 10/10/19 23:10 94 10/10/19 18:28 93 10/10/19 18:27 92 10/10/19 17:00 95 10/10/19 15:59 94 10/10/19 15:58 94 10/10/19 15:03 96 10/10/19 14:42 96 10/10/19 14:06 94 10/10/19 13:40 93 10/10/19 13:25 93 10/10/19 13:15 92 10/10/19 13:05 94 10/10/19 12:58 95 10/10/19 09:08 95 Pain Intensity Left Knee: Pain Intensity: 2 Notes Mental Status: alert / awake / arousable and participated in evaluation Patient Amnestic to Procedure: Yes Nausea / Vomiting: adequately controlled Pain: adequately controlled Airway Patency, RR, SpO2: stable & adequate BP & HR: stable & adequate Hydration State: stable & adequate Neuraxial Anesthesia: was administered and sensory block resolved Anesthetic Complications: no major complications apparent and Pt Satisfied with anesthetic care
[2019-10-11] MEDS ORDERED: PANTOprazole 40 MG TAB PO SCH (09:00)
[2019-10-11] MEDS ORDERED: VALSARTAN 80 MG TAB PO SCH (09:00)
[2019-10-11] MEDS ORDERED: AMLODIPINE BESYLATE 5 MG TAB PO SCH (09:00)
[2019-10-11] MEDS ORDERED: MULTIVITAMIN TAB PO SCH (09:00)
[2019-10-11] MEDS ORDERED: EZETIMIBE 10 MG TABLET PO SCH (09:00)
--- NOTE | 2019-10-11 14:01 | Hospitalist Progress Note ---
Date of Service October 11, 2019 Assessment & Plan (1) Arthritis of knee, left: S/p left TKA with Dr. Hernandez on 10/10/2019. Estimated blood loss of 5 mL per operative note. - Post-operative follow up and pain managment per primary team - PT/OT & dispo per primary team - DVT ppx per primary team (2) Leukocytosis: Likely reactive. No further needs inpatient. - PCP can check CBC in 1 week (3) (HFpEF) heart failure with preserved ejection fraction: Patient is on Lasix at home. Though it is listed as daily she tells me she takes it PRN when she feels chest tightness. - Will stop IV fluids at this time - Will hold Lasix for now, but low threshold to give her a dose -> Doing well today. No signs of volume overload. Talked to her about using Lasix at home if she feels any signs. (4) CAD (coronary artery disease): Cath in 2013 with non-obstructive CAD found. - Continue ezetimibe (5) Hypertension: BP is 150/70 after surgery. - Continue amlodipine, valsartan (6) Asthma: No present shortness of breath. Not on a maintenance inhaler. - Albuterol PRN (7) Anxiety: Uses her Xanax TID all the time. While not my preferred anti-anxiety regimen, I would not adjust this while inpatient. Given medical stability, Hospital Medicine team will sign off. Please re-consult with any questions or concerns. Thank you for letting us assist in the care of this patient! Subjective Feeling well. Her knee feels good. No breathing issues and no chest tightness to indicate volume overload. She overall is doing well. No major concerns today. Reports no fevers/chills, chest pain, shortness of breath, abdominal pain, nausea, or vomiting. Physical Exam Constitutional: WD/WN, vitals as above Eyes: EOM intact bilaterally; no conjunctival abnormality ENMT: external ear and nose normal, oropharynx normal Neck: trachea midline, no thyromegaly normal visual inspection Respiratory: normal respiratory effort, lungs clear to auscultation no respiratory distress Cardiovascular: RRR, no murmur, no edema Gastrointestinal (Abdomen): Inspection/Auscultation: abdomen normal to inspection; abdomen not distended Musculoskeletal: Extremities: extremities normal to inspection (Left knee in bandage with drain present.) Skin: no rashes, warm and dry Neurologic: moves all extremities and awake Psychiatric: Orientation: alert, oriented to person and cooperative Results & Data ([facility]) Vital Signs (Past 12 Hours) Vital Signs Temp Pulse Pulse Resp BP BP Pulse Ox 10/11/19 11:25 36.5 C 65 55 L 20 127/64 152/67 H 95 10/11/19 11:01 36.5 C 65 20 127/64 95 10/11/19 08:05 36.5 C 57 L 20 122/68 95 10/11/19 03:00 36.7 C 55 L 18 152/67 H 91 PG Care Time/CCT Total # of Minutes Spent Total Time Spent with Patient: Total time spent is greater than 50% in coordination of care (as documented) at patient's floor/unit and/or counseling patient: Coding Level of Care Code 58657 Subseq Hosp Care Lvl 3 Diagnoses Arthritis of knee, left M17.12 Leukocytosis D72.829 (HFpEF) heart failure with preserved ejection fraction I50.30 CAD (coronary artery disease) I25.10 Hypertension I10 Asthma J45.909 Anxiety F41.9
--- NOTE | 2019-10-15 11:48 | Discharge Summary ---
Date of Service October 15, 2019 Admission HPI Per Admitting Provider Zulema is a 74 year old female who complains of left knee pain, presents for pre- op evaluation prior to a left total knee replacement by dr Hernandez at [facility]. She complains of pain, crepitus, decreased range of motion, instability and stiffness in the left knee. She states that the symptoms have been chronic and non-traumatic and that the symptoms occur constantly with intermittent worsening. Currently the patient states that the symptoms are moderate-severe. The pain is described as aching, sharp and throbbing. The symptoms occur continuously. The symptoms are aggravated by ascending stairs, daily activities, first steps while awake walking. Prior NSAIDs include Aleve and Ibuprofen. she has been treated with previous cortisone and visco injections in the past without much relief. she is currently using a walker to assist with ambulation. Admission Exam Per Admitting Provider Physical Exam: Ht: 5ft 1in Wt: 104.8kg BP: 136/74 Pulse: 76 Constitutional: WD/WN, vitals as above no acute distress Respiratory: normal respiratory effort, lungs clear to auscultation no respiratory distress, no labored breathing and does not use accessory muscles Cardiovascular: RRR, no murmur, no edema Gastrointestinal (Abdomen): normal bowel sounds, soft, nontender, no hepatosplenomegaly Musculoskeletal: Knee: + knee abnormal to inspection (left knee), + effusion (+1 effusion), + limited ROM of knee (ROM 0/3/110), + knee ROM with crepitation, + joint line tenderness (medial joint line) and + Kathy's sign positive; no deformity, no skin erythema, no ecchymosis, no valgus laxity, no varus laxity, anterior drawer test negative, Rafa's sign negative and pivot shift test negative Principal Diagnosis Left knee osteoarthritis Discharge Data Allergies Allergy/AdvReac Type Severity Reaction Status Date / Time amoxicillin [From Augmentin] Allergy Unknown DEWITT MOUTH Verified 10/10/19 08:55 clavulanic acid Allergy Unknown DEWITT MOUTH Verified 10/10/19 08:55 [From Augmentin] erythromycin base Allergy Unknown DEWITT MOUTH Verified 10/10/19 08:55 paroxetine [From Paxil] AdvReac Unknown DEWITT MOUTH Verified 10/10/19 08:55 Consultations 10/10/19 14:02 Consult Case Management - Discharge Planning Routine Consult Hospitalist Routine Procedures Performed Operation Date: 10/10/19 11:10 Actual Procedures p Left Total Knee Arthroplasty(Left) - Rod Hernandez DO Ordered Studies 10/10/19 05:00 US - OR guided needle placemen Routine Hospital Course (1) Arthritis of knee, left: [place] [address] Orthopedic Progress Note Signed Patient: ZULEMA ELISE Date: 10/10/19 MR#: [id number] Phy: Rod Hernandez,D.OElvin Acct ID:[id number] Phy: JESSICA DELGADO M.D. Date: 1945Fam Phy: Age: 74Location: 3W Sex: F Room/Bed: W3-2 cc: ~ *NOTICE TO RECEIVING CONSTITUTION PARTY/AGENCY This information is strictly Confidential and protected under [place] law. [place] law prohibits you from making any further disclosure of this information unless further disclosure is expressly permitted by the written consent of the person to whom it pertains or is authorized by law. A general authorization for the release of medical or other information is not sufficient for this purpose. Hospital accepts no responsibility if the information is made available to any other person, INCLUDING THE PATIENT. Date of Service October 11, 2019 Assessment & Plan (1) History of total left knee replacement: POD #1 s/p Left TKA pt/ot dvt proph with LANDEN/SCD/ASA plan for d/c home with HHPT, recheck after PT today. likely have home health d/c drain tomorrow. Subjective POD #1 s/p Left TKA Review of Systems Constitutional: no fever, no chills and no sweats Respiratory: no cough and no dyspnea Cardiovascular: no chest pain and no dyspnea Gastrointestinal: no abdominal pain, no nausea and no vomiting Physical Exam Physical Exam: Vital Signs Temp 36.7 C 10/11/19 03:00 Pulse 55 L 10/11/19 03:00 Resp 18 10/11/19 03:00 BP 152/67 H 10/11/19 03:00 Pulse Ox 91 10/11/19 03:00 Intake & Output 10/10/19 10/11/19 10/11/19 18:59 06:59 18:59 Intake Total 1464.000 / 2312.00 0 848 / 2312.000 Output Total 205 / 1305 1100 / 1305 Balance 1259.000 / 1007.00 0 -252 / 1007.000 Weight 103.918 kg Intake: IV 964.000 / 1072.000 108 / 1072.000 Cleocin 600 mg In D5w 50 ml @ 108 / 108 100 mls/hr IV Q8H OBDULIO Rx#: [id number] CLEOCIN 600 mg In 54 ml @ 100 54 / 54 mls/hr IV PREO P OBDULIO Rx#: [id number] Lr 1,000 ml @ 15 mls/hr IV . 700.000 / 700.000 Q24H OBDULIO Rx#:[id number] TRANEXAMIC ACI D / 0.7% NACL 1, 210 / 210 000 mg In 100 ml @ 600 mls/hr IV TODAY@0600 OBDULIO Rx#:[id number] IV Perioperative 500 / 500 Oral 740 / 740 Output: Urine 200 / 975 775 / 975 Estimated Blood Loss 5 / 5 Drain Output 325 / 325 Left Knee 325 / 325 Constitutional: WD/WN, vitals as above no acute distress Musculoskeletal: Left Leg: NVDI, calf SNT, negative laureen sign. DP palpable, able to wiggle toes/ankle movement without difficulty. dressing clean dry and intact. Patient was started on PT OT protocol and was progressing well. [facility] physician group hospitalist service was consulted for medical management and the patient was remaining medically stable. Was felt she was stable for discharge on 10/11/2019. Total Time Total Time Spent Total Time Spent (In Minutes): 5 Discharge Plan Discharge Items Patient Disposition: Home - Home Health Services Reason For Visit: Unilateral Primary Osteoarthritis, Left Knee Discharge Diagnosis: left total knee replacement Condition on Discharge: Good Activity: Per Instructions section Lifting: Wait until after follow-up appointment Weightbearing: Full weightbearing and Left weightbearing Non-emergency contact: Primary Care Provider and Surgeon Call non-emergency contact if: you have any medication questions, you have a fever, your wound has increased redness, your wound has increased drainage and your wound pain has increased Follow-up/Referrals: Jessica Delgado MD [Primary Care Provider] - Diet: Regular Addtl Attending Provider Instructions: ACTIVITY RECOMMENDATIONS: SELF CARE INSTRUCTIONS AFTER TOTAL KNEE REPLACEMENT A. You may need to continue a physical therapy program after discharge from the hospital. There are several options available to you. Your doctor will assist you in selecting the best one for you. 1. An out-patient facility 2 to 3 times a week for therapy or home therapy. 2. Continue working on all exercises taught to you in the hospital. Your goals should be to increase bending of your knee to 90 degrees and beyond and to fully straighten your knee. B. You may progress at your own pace from walking with a walker or crutches to a cane; then to no assistive devices. C. Make walking a part of your daily routine. Be up as much as comfortable with rest periods throughout the day. Rest with leg elevation is very important. Use the ice wrap frequently for the first 3-4 weeks. D. There are no restrictions on activities. You may ride in a car, shop, participate in manager education and all social activities. E. Wear the long elastic stockings (LANDEN hose) 20 hours a day for 2 weeks after surgery. They can be removed several times a day for laundering and for a bath. F. You may shower, no tub baths until cleared by your doctor. SPECIAL CARE INSTRUCTIONS: VERY IMPORTANT TO READ AND REVIEW A. There are a few signs you need to watch for after you are home. Call [facility] if you notice any of the followin. Increased severe knee pain. Some pain is expected especially when you exercise. 2. Increased swelling in your leg or knee; pain or swelling of the calf muscle in either lower leg. 3. Any fluid drainage from the incision. 4. Shortness of breath or chest pain. B. Please call [facility] at if you have any concerns or questions about your operation or recovery. The doctor or his nurse will return your call promptly. C. You must take antibiotics before dental work, bladder, bowel or other surgery. Your doctor will provide you with a permanent care to carry describing this precaution. IMPORTANT: * REMEMBER TO TAKE ASPIRIN, 81 MG, TWICE DAILY FOR 4 WEEKS UNLESS OTHERWISE DIRECTED. THIS IS YOUR BLOOD THINNER. * HIGH RISK PATIENTS MAY BE PRESCRIBED A STRONGER BLOOD THINNER. THIS WILL BE PROVIDED AT DISCHARGE. * CALL IF INCREASED PAIN, REDNESS, DRAINAGE OR FEVER GREATER THAT 101. * WEAR LANDEN HOSE 20 HOURS PER DAY FOR 2 WEEKS. * YOU MAY HAVE A LARGE BAND-AID LIKE DRESSING (SILVERON). THIS WILL REMAIN ON YOUR INCISION FOR 7 DAYS, THEN CAN BE REMOVED. IF INCISION IS LEAKING THROUGH DRESSING, CALL THE OFFICE . FOLLOW UP VISIT: If appointment is not already scheduled: Please call [facility] to make a follow-up appointment for 2 weeks after your surgery at . Pending Studies at Discharge: No Stand-Alone Forms: My [facility], Opioid Pain Management, Smoking Cessation Medications and DC Order Prescriptions: New aspirin [Ecotrin Low Strength] 81 mg Tablet,Delayed Release (Dr/Ec) 81 mg PO BID 30 Days Qty: 60 RF: 0 acetaminophen 500 mg Tablet 1,000 mg PO Q8 14 Days Qty: 84 RF: 0 oxycodone 5 mg Tablet 5 - 10 mg PO Q6H PRN (Reason: pain) Qty: 30 RF: 0 docusate sodium 100 mg Capsule 100 mg PO BID 10 Days Qty: 20 RF: 0 clindamycin HCl 300 mg capsule 300 mg PO TID 7 Days Qty: 21 RF: 0 Continued furosemide [Lasix] 40 mg Tablet 40 mg PO QAM RF: 0 alprazolam [Xanax] 1 mg Tablet 1 mg PO TID RF: 0 amlodipine 2.5 mg Tablet 2.5 mg PO QAM RF: 0 ascorbic acid (vitamin C) [Vitamin C] 500 mg Tablet 500 mg PO DAILY RF: 0 dicyclomine 20 mg Tablet 20 mg PO QID RF: 0 diphenhydramine HCl [ZzzQuil] 25 mg Capsule 25 mg PO HS PRN (Reason: Sleep) RF: 0 esomeprazole magnesium [Nexium] 40 mg Capsule,Delayed Release(Dr/Ec) 40 mg PO QAM RF: 0 albuterol sulfate [Ventolin HFA] 90 mcg/actuation Hfa Aerosol Inhaler 2 puff INHALATION QID PRN (Reason: ASTHMA) RF: 0 valsartan 160 mg Tablet 160 mg PO QAM RF: 0 ezetimibe [Zetia] 10 mg Tablet 10 mg PO QAM RF: 0 magnesium oxide 400 mg magnesium Tablet 400 mg PO QPM RF: 0 Discontinued hydrocodone-homatropine 5-1.5 mg Tablet 1 tab PO Q6H PRN (Reason: Cough) RF: 0 diclofenac sodium 75 mg Tablet,Delayed Release (Dr/Ec) 75 mg PO BID RF: 0 diclofenac sodium 1 % Gel 2 g TOPICAL HS RF: 0 Discharge Orders: Discharge Order (Routine); Ordered 10/11/19 Ordered By: Dustin Garcia/Other Patient Handouts: Surgery Prevent DVT After Admission Data Admit Date/Time: 10/10/19 13:08 Attending Provider: Rod Hernandez Admit Provider: Rod Hernandez Primary Care Provider: Jessica Delgado Other Providers: Saleem Knox ; José Miguel Centeno ; Benny Velasco ; [facility] Other Interventions: Discharge Summary Assessment (RN) Last Done: 10/11/19 11:25 DC Date/Time DO NOT enter until pt leaves facility: 10/11/19 13:55
== END 2019-10-11 13:55 | disposition home health service (06) | DRG 470 ==
LOC: ASU 08:09 → 3W 13:08